=== PATIENT | female | born 1930 | race Caucasian/White ===

== ENCOUNTER 2018-03-31 20:20 | Emergency (ER) | payer OTHER ==
--- NOTE | 2018-03-31 20:57 | RAD REPORT ---
EXAM DESCRIPTION: CT - Head C Spine Mpr Wo Con - 03/31/2018 8:41 pm CLINICAL HISTORY: Head and neck injury status post fall. Head and neck pain COMPARISON: November 2017 TECHNIQUE: Computed axial tomography of the head and cervical spine was obtained. Sagittal and coronal reconstruction was performed. All CT scans are performed using dose optimization technique as appropriate and may include automated exposure control or mA/KV adjustment according to patient size. FINDINGS: An intracranial bleed is not seen. Moderate to marked low-density areas are present in per iventricular, deep and subcortical white matter bilaterally likely representing ischemic changes seco ndary to small vessel. Small low-density area within the left thalamus is unchanged likely indicating an old lacunar infarct ion. The ventricles are normal in caliber. An extra-axial fluid collection is not noted.Fluid within the visualized sinuses and mastoids is not seen A cervical fracture is not visualized. No dislocation is noted. Spondylosis involves the cervical spi ne resulting in mild central spinal stenosis IMPRESSION: No acute intracranial abnormality is seen. A cervical fracture is not visualized. If the patient continues to have symptoms to suggest intracra nial /spinal cord pathology then MRI would be recommended
--- NOTE | 2018-03-31 21:14 | RAD REPORT ---
EXAM DESCRIPTION: Vanesa Single View03/31/2018 9:08 pm CLINICAL HISTORY: Chest pain COMPARISON: November 2017 FINDINGS: The lungs appear clear of acute infiltrate. The heart is mildly to moderately enlarged IMPRESSION: No acute abnormalities displayed
--- NOTE | 2018-03-31 21:15 | RAD REPORT ---
EXAM DESCRIPTION: RAD - Pelvis - 03/31/2018 9:08 pm CLINICAL HISTORY: Pelvic pain status post injury FINDINGS: No fracture or dislocation is seen. The bones are considerably osteoporotic. If the patient continues have symptoms to suggest an occult fracture then MRI would be recommended
[2018-03-31 21:59] LABS: Absolute Lymphocytes (CBC) 1.9 K/uL (0.7-4.9); Absolute Monocytes 0.9 K/uL (0.1-1.3); Absolute Neutrophil 5.2 K/uL (1.8-8.0); Basophils % 0.6 % (0-1.3); Eosinophils % 1.7 % (0-4.4); Hematocrit 37.7 % (36.0-45.0); Lymphocytes % 22.9 % (15.3-44.8); MCH 31.3 pg (27.0-35.0); MCV 91.9 fL (80-100); MPV 10.2 fL (7.6-11.3); Monocytes % 11.2 % (3.3-12.3)
[2018-03-31 22:02] LABS: Protime INR 1.03
[2018-03-31 22:09] LABS: Urine Blood NEGATIVE (NEG); Urine Glucose NEGATIVE (NEG); Urine Protein TRACE (NEG)
[2018-03-31 22:18] LABS: Albumin 2.9 g/dL (3.4-5.0); Bilirubin Direct 0.2 mg/dL (0-0.2); Bilirubin Total 0.5 mg/dL (0.2-1.0); CKMB Creatine Kinase MB 2.1 ng/mL (0.3-3.6); Magnesium 2.3 mg/dL (1.8-2.4); Potassium 3.8 mmol/L (3.5-5.1); Protein, Total 5.8 g/dL (6.4-8.2)
[2018-03-31] MEDS ORDERED: NA CHLORIDE 0.9% 250 ML ONE (22:33)
[2018-03-31] MEDS ORDERED: ASPIRIN 600 MG/SUPP PR ONE (22:52)
[2018-03-31] MEDS ORDERED: METOPROLOL TARTRATE 5 MG/5 ML INJ IV ONE (22:58)
[2018-03-31] MEDS ORDERED: ENOXAPARIN 60 MG/0.6 ML SQ ONE (22:59)
--- NOTE | 2018-03-31 23:08 | ER ---
Nurse's Notes [facility] Name: Lb Padilla Age: 87 yrs Sex: Female : 1930 Arrival Date: 03/31/2018 Time: 20:27 Bed 2 Private MD: Diagnosis: Non-ST elevation (NSTEMI) myocardial infarction Presentation: 03/31 20:34 Presenting complaint: EMS states: Pt was found on floor at [facility], was initially tl2 combative. When pt was transferred to EMS stretcher she became obtunded. Arouses to verbal stimuli. Baseline AOx1. Pt denies complaints. Transition of care: patient was received from another setting of care (long-term care [facility]), [facility]. Onset of symptoms was March 31, 2018 at 19:30. Risk Assessment: Do you want to hurt yourself or someone else? Patient reports no desire to harm self or others. Initial Sepsis Screen: Does the patient meet any 2 criteria? No. Patient's initial sepsis screen is negative. Does the patient have a suspected source of infection? No. Patient's initial sepsis screen is negative. Care prior to arrival: IV initiated. 20 GA, in the right wrist. 20:34 Method Of Arrival: EMS: [facility] tl2 20:34 Acuity: ARABELLA 2 tl2 Triage Assessment: 20:42 General: Appears in no apparent distress. Behavior is listless. Pain: Denies pain. tl2 Neuro: Level of Consciousness is obtunded, Oriented to person, Aws Developer are equal bilaterally Facial symmetry appears normal, Pupils are pinpoint. Cardiovascular: Denies chest pain. Respiratory: Airway is patent Respiratory effort is even, unlabored, Respiratory pattern is regular, symmetrical. GI: No signs and/or symptoms were reported involving the gastrointestinal system. : No signs and/or symptoms were reported regarding the genitourinary system. Derm: Skin is pink, warm \T\ dry. Historical: - Allergies: 20:42 No Known Allergies; tl2 - Home Meds: 20:42 cyanocobalamin (vitamin B-12) Oral [Active]; bisoprolol fumarate 10 mg Oral tab 1 tab tl2 once daily [Active]; clonidine 0.1mg patch once every tuesday [Active]; docusate sodium 100 mg Oral tab 1 tab 2 times per day [Active]; duloxetine 60 mg oral cpDR 1 cap once daily [Active]; folic acid 1 mg Oral tab 1 tab once daily [Active]; ibuprofen 400 mg Oral tab 1 tab [Active]; levothyroxine 150 mcg tab 1 tab once daily [Active]; memantine 10 mg Oral tab 1 tab 2 times per day [Active]; olmesartan 40 mg once daily Oral [Active]; risperidone 3 mg Oral tab 1 tab once daily [Active]; spironolactone 50 mg Oral tab 1 tab once daily [Active]; - PMHx: 20:42 Alzheimers; Arthritis; Hypertension; Hypothyroidism; low back pain; manic; Psychotic tl2 disorder; rash; UTI; VASCULAR DEMENTIA; - Immunization history:: Adult Immunizations up to date. - Social history:: Smoking status: unknown. - Ebola Screening: : No symptoms or risks identified at this time. Screenin:44 Abuse screen: Denies threats or abuse. Nutritional screening: No deficits noted. tl2 Tuberculosis screening: No symptoms or risk factors identified. Fall Risk Fall in past 12 months (25 points). IV access (20 points). Gait- Weak (10 pts.). Assessment: 20:44 General: see triage assessment. tl2 21:48 Reassessment: Patient appears in no apparent distress at this time. No changes from tl2 previously documented assessment. 23:12 Reassessment: Patient appears in no apparent distress at this time. Lopressor held due tl2 to pulse at 52. 06/30 00:03 Reassessment: Pt is awake and trying to pull out IV, refused nitro and stated she tl2 wasn't going to take anything from me. Tech instructed to sit with pt. Notified PA that pt refused nitro, stated that she could have IV Lopressor if her pulse was high enough. IV Lopressor given, Pulse reading at 76. 00:30 Reassessment: Patient appears in no apparent distress at this time. Patient and/or tl2 family updated on plan of care and expected duration. Pain level reassessed. BP reading at 126/58, pt is sleeping, RR even and unlabored, VSS. Awaiting transport. Vital Signs: 03/31 20:42 BP 104 / 82; Pulse 69; Resp 20; Temp 97.8(O); Pulse Ox 97% on R/A; Weight 58.97 kg; tl2 Height 5 ft. 5 in. (165.10 cm); 21:48 BP 139 / 67; Pulse 52; Resp 10; Pulse Ox 96% on R/A; tl2 22:45 BP 170 / 89; Pulse 67; Resp 14; Temp 97.4(C); Pulse Ox 98% on R/A; tl2 04/01 00:19 BP 155 / 60; Pulse 57; Resp 11; Temp 97.8(C); Pulse Ox 96% on R/A; tl2 03/31 20:42 Body Mass Index 21.63 (58.97 kg, 165.10 cm) tl2 Vitals: 03/31 22:46 Cardiac Rhythm Assessment Regular Sinus rhythm. tl2 ED Course: 20:27 Patient arrived in ED. ds1 20:28 Chaim Neumann PA is PHCP. cp 20:28 Alex Edmond MD is Attending Physician. cp 20:[address] via stretcher. sj 20:36 Triage completed. tl2 20:41 CT Head C Spine In Process Unspecified. EDMS 20:41 CT completed. Patient tolerated procedure well. Patient moved back from CT. nj 20:42 Arm band placed on right wrist. tl2 20:44 Patient has correct armband on for positive identification. Placed in gown. Bed in low tl2 position. Call light in reach. Side rails up X2. 20:44 Maintain EMS IV. Dressing intact. Good blood return noted. Site clean \T\ dry. Gauge \T\ tl 2 site: 20 g R hand. 21:07 X-ray completed. Portable x-ray completed in exam room. Patient tolerated procedure bb2 well. 21:08 XRAY Chest (1 view) In Process Unspecified. EDMS 21:08 XRAY Pelvis In Process Unspecified. EDMS 21:23 Velazquez cath inserted, using sterile technique, 16 Fr., by ED staff, balloon inflated, tl2 urine specimen collected. returned clear yellow urine. 22:41 initiated transfer with [facility] spoke with Mari at the transfer line. She is eb calling cardiology and will call us back. 23:[address] Heck with BONNIE Neumann for patient consulation. eb 23:19 administrative approval given by Mari Houston RN change coordinator. Pt to go to [address] [place] [address] Bed 9. Number for report is [phone]. 04/01 00:17 Jyotsna Farris, JOSÉ MIGUEL is Primary Nurse. tl2 00:30 No provider procedures requiring assistance completed. Patient admitted, IV remains in tl2 place. Administered Medications: 03/31 22:43 Drug: NS 0.9% 250 ml Route: IV; Rate: bolus; Site: right hand; tl2 04/01 01:08 Follow up: IV Status: Completed infusion tl2 03/31 23:11 Drug: Lovenox 1 mg/kg Route: Sub-Q; Site: left lower abdomen; tl2 04/01 01:08 Follow up: Response: No adverse reaction tl2 03/31 23:12 Drug: Aspirin Suppository 300 mg Route: KS; tl2 04/01 01:08 Follow up: Response: No adverse reaction tl2 03/31 23:12 Not Given (Hemodynamic Parameters): Lopressor 5 mg IVP once; Hold for SBP <100 or HR tl2 <60. 04/01 00:09 Not Given (Patient Refused): Nitroglycerin 0.4 mg Sublingual once; every five minute if tl2 needed x3 00:18 Drug: Lopressor 5 mg Route: IVP; Site: right hand; tl2 01:09 Follow up: Response: No adverse reaction; Blood pressure is lowered tl2 Outcome: 03/31 23:08 ER care complete, transfer ordered by . belem 04/01 00:30 Transferred by ground EMS to [facility], Transfer form completed. tl2 Condition: stable Discharge instructions given to EMS. 01:09 Patient left the ED. tl2 Signatures: Dispatcher [employer] EDMO Trudy Briggs Demi ds1 Chaim Neumann PA PA cp Jyotsna Farris RN RN tl2 Umesh Nath Brittany bb2 Aga Melendrez Corrections: (The following items were deleted from the chart) 03/31 21:49 20:42 Neuro: Level of Consciousness is obtunded, Oriented to person, Aws Developer are equal tl2 bilaterally Facial symmetry appears normal, tl2 04/01 01:07 00:58 Reassessment: Patient appears in no apparent distress at this time. Patient tl2 and/or family updated on plan of care and expected duration. Pain level reassessed. tl2
--- NOTE | 2018-03-31 23:08 | EDPHYS ---
Physician Documentation [facility] Name: Lb Padilla Age: 87 yrs Sex: Female : 1930 Arrival Date: 03/31/2018 Time: 20:27 Bed 2 Private MD: ED Physician Alex Edmond HPI: 03/31 20:34 This 87 yrs old Female presents to ER via Unassigned with complaints of Fall cp Injury, Altered Mental Status. 20:34 Onset: The symptoms/episode began/occurred unknown. Found on ground by [facility] staff. Historical: - Allergies: 20:42 No Known Allergies; tl2 - Home Meds: 20:42 cyanocobalamin (vitamin B-12) Oral [Active]; bisoprolol fumarate 10 mg Oral tab 1 tab tl2 once daily [Active]; clonidine 0.1mg patch once every tuesday [Active]; docusate sodium 100 mg Oral tab 1 tab 2 times per day [Active]; duloxetine 60 mg oral cpDR 1 cap once daily [Active]; folic acid 1 mg Oral tab 1 tab once daily [Active]; ibuprofen 400 mg Oral tab 1 tab [Active]; levothyroxine 150 mcg tab 1 tab once daily [Active]; memantine 10 mg Oral tab 1 tab 2 times per day [Active]; olmesartan 40 mg once daily Oral [Active]; risperidone 3 mg Oral tab 1 tab once daily [Active]; spironolactone 50 mg Oral tab 1 tab once daily [Active]; - PMHx: 20:42 Alzheimers; Arthritis; Hypertension; Hypothyroidism; low back pain; manic; Psychotic tl2 disorder; rash; UTI; VASCULAR DEMENTIA; - Immunization history:: Adult Immunizations up to date. - Social history:: Smoking status: unknown. - Ebola Screening: : No symptoms or risks identified at this time. ROS: 20:36 Unable to obtain ROS due to altered mental status. cp Exam: 20:36 Head/Face: Normocephalic, atraumatic. cp 20:36 Constitutional: The patient appears non-diaphoretic, non-toxic, well developed, frail, smells of urine. 20:36 Eyes: Periorbital structures: appear normal, Pupils: pinpoint, bilaterally, Conjunctiva: normal, no exudate, no injection, Lids and lashes: appear normal, bilaterally. 20:36 ENT: External ear(s): are unremarkable, Ear canal(s): are normal, clear, Nose: is normal, Mouth: Lips: dry, Oral mucosa: dry, Posterior pharynx: Airway: no evidence of obstruction, patent. 20:36 Neck: C-spine: C-collar placed in ED. 20:36 Chest/axilla: Inspection: normal, Palpation: is normal, no crepitus, no tenderness. 20:36 Cardiovascular: Rate: normal, Rhythm: regular. 20:36 Respiratory: the patient does not display signs of respiratory distress, Respirations: normal, no use of accessory muscles, no retractions, no splinting, no tachypnea, Breath sounds: are clear throughout, no decreased breath sounds, no stridor, no wheezing. 20:36 Abdomen/GI: Inspection: abdomen appears normal, Bowel sounds: active, all quadrants, Palpation: abdomen is soft and non-tender, in all quadrants. 20:36 Neuro: Orientation: unable to test, altered, Mentation: responsive to pain, Cerebellar function: unable to test, Motor: unable to test. 20:40 ECG was reviewed by the Attending Physician. cp Vital Signs: 20:42 BP 104 / 82; Pulse 69; Resp 20; Temp 97.8(O); Pulse Ox 97% on R/A; Weight 58.97 kg; tl2 Height 5 ft. 5 in. (165.10 cm); 21:48 BP 139 / 67; Pulse 52; Resp 10; Pulse Ox 96% on R/A; tl2 22:45 BP 170 / 89; Pulse 67; Resp 14; Temp 97.4(C); Pulse Ox 98% on R/A; tl2 04/01 00:19 BP 155 / 60; Pulse 57; Resp 11; Temp 97.8(C); Pulse Ox 96% on R/A; tl2 03/31 20:42 Body Mass Index 21.63 (58.97 kg, 165.10 cm) tl2 MDM: 03/31 20:31 Patient medically screened. cp 23:00 Data reviewed: vital signs, nurses notes, lab test result(s), EKG, radiologic studies, cp CT scan, plain films. 23:00 Differential diagnosis: closed head injury, fracture, acute IN, CVA. Test cp interpretation: by ED physician or midlevel provider: ECG, plain radiologic studies. Response to treatment: the patient's symptoms have markedly improved after treatment. 03/31 20:30 Order name: Basic Metabolic Panel 03/31 20:30 Order name: CBC with Diff 03/31 20:30 Order name: Ckmb 03/31 20:30 Order name: CPK 03/31 20:30 Order name: LFT's 03/31 20:30 Order name: Magnesium 03/31 20:30 Order name: NT PRO-BNP 03/31 20:30 Order name: PT-INR 03/31 20:30 Order name: Ptt, Activated; Complete Time: 22:22 03/31 20:30 Order name: Troponin (emerg Dept Use Only); Complete Time: 22:22 03/31 22:22 Interpretation: Abnormal: TROPED 0.15. 03/31 20:30 Order name: Lactate; Complete Time: 22:50 03/31 20:30 Order name: Procalcitonin; Complete Time: 22:50 03/31 22:51 Interpretation: Procalcitonin < 0.05; Reviewed. 03/31 20:30 Order name: Blood Culture Adult (2) 03/31 20:30 Order name: Basic Metabolic Panel; Complete Time: 22:22 EDIN 03/31 22:22 Interpretation: Normal except: CL 108; GLUC 110; BUN 25; GFR 52. 03/31 20:30 Order name: CT Head C Spine; Complete Time: 21:17 03/31 21:17 Interpretation: Reviewed report. 03/31 20:30 Order name: XRAY Chest (1 view); Complete Time: 21:17 03/31 20:30 Order name: XRAY Pelvis; Complete Time: 21:17 03/31 20:30 Order name: CBC with Automated Diff; Complete Time: 22:22 EDIN 03/31 22:23 Interpretation: Normal except: PLT 109. 03/31 20:30 Order name: CKMB Creatine Kinase MB; Complete Time: 22:22 EDIN 03/31 20:30 Order name: Creatine Phosphokinase; Complete Time: 22:22 EDIN 03/31 20:30 Order name: Liver (Hepatic) Function; Complete Time: 22:22 EDIN 03/31 20:30 Order name: Magnesium; Complete Time: 22:22 EDMS 03/31 20:30 Order name: NT PRO-BNP; Complete Time: 22:22 EDMS 03/31 20:30 Order name: Protime (+INR); Complete Time: 22:22 EDMS 03/31 21:53 Order name: Urine Dipstick--Ancillary (enter results); Complete Time: 22:22 eb 03/31 20:30 Order name: EKG; Complete Time: 20:31 cp 03/31 20:30 Order name: Cardiac monitoring; Complete Time: 21:38 cp 03/31 20:30 Order name: EKG - Nurse/Tech; Complete Time: 21:38 cp 03/31 20:30 Order name: IV Saline Lock; Complete Time: :44 cp 03/31 20:30 Order name: Labs collected and sent; Complete Time: :44 cp 03/31 20:30 Order name: O2 Per Protocol; Complete Time: 21:44 cp 03/31 20:30 Order name: O2 Sat Monitoring; Complete Time: :44 cp 03/31 20:30 Order name: Urine Dipstick-Ancillary (obtain specimen); Complete Time: :44 cp 03/31 21:43 Order name: Velazquez; Complete Time: 21:43 cp EC:40 Rate is 66 beats/min. Rhythm is regular. KS interval is normal. QRS interval is normal. cp QT interval is prolonged at 464 msec. Interpreted by me. Reviewed by me. Administered Medications: 22:43 Drug: NS 0.9% 250 ml Route: IV; Rate: bolus; Site: right hand; tl2 04/01 01:08 Follow up: IV Status: Completed infusion 03/31 23:11 Drug: Lovenox 1 mg/kg Route: Sub-Q; Site: left lower abdomen; tl2 04/01 01:08 Follow up: Response: No adverse reaction tl2 03/31 23:12 Drug: Aspirin Suppository 300 mg Route: KS; tl2 04/01 01:08 Follow up: Response: No adverse reaction 03/31 23:12 Not Given (Hemodynamic Parameters): Lopressor 5 mg IVP once; Hold for SBP <100 or HR tl2 <60. 04/01 00:09 Not Given (Patient Refused): Nitroglycerin 0.4 mg Sublingual once; every five minute if tl2 needed x3 00:18 Drug: Lopressor 5 mg Route: IVP; Site: right hand; tl2 01:09 Follow up: Response: No adverse reaction; Blood pressure is lowered tl2 Disposition: 03/31 23:15 Chart complete. cp 04/01 11:13 Co-signature as Attending Physician, Alex Edmond MD I agree with the assessment and wa plan of care. Disposition: 03/31/18 23:08 Transfer ordered to [facility]. Diagnosis is Non-ST elevation (NSTEMI) myocardial infarction. - Reason for transfer: Higher level of care. - Accepting physician is Marsha. - Condition is Stable. - Problem is new. - Symptoms have improved. Signatures: Dispatcher [employer] EDMS Chaim Neumann PA PA cp Knox, Taylor, RN RN tl2 Alex Edmond MD MD wa Corrections: (The following items were deleted from the chart) 01:09 03/31 23:08 03/31/2018 23:08 Transfer ordered to [facility]. tl2 Diagnosis is Non-ST elevation (NSTEMI) myocardial infarction. Reason for transfer: Higher level of care. Accepting physician is Marsha. Condition is Stable. Problem is new. Symptoms have improved. cp
[2018-04-01] MEDS ORDERED: NITROGLYCERIN 0.4 MG/TAB SL ONE (00:07)
--- NOTE | 2018-04-01 08:42 | EKG ---
Test Date: 2018-03-31 Test Time: 20:31:05 Network Security Analyst: CLAIRE MEASUREMENT RESULTS: Intervals: Rate: 66 WV: 140 QRSD: 100 QT: 464 QTc: 486 [place]: P: 87 WV: 140 QRS: 66 T: -22 INTERPRETIVE STATEMENTS: Normal sinus rhythm Possible Left atrial enlargement ST & T wave abnormality, consider inferior ischemia Prolonged QT Abnormal ECG Compared to ECG 11/14/2017 06:52:25 Possible ischemia now present Left ventricular hypertrophy no longer present ST (T wave) deviation still present Electronically Signed On 04-01-18 08:41:27 CDT by Deshawn Strong
== END 2018-04-01 01:09 | disposition short-term general hospital (02) ==
LOC: ER 20:20
DX: I21.4 Non-ST elevation (NSTEMI) myocardial infarction (principal); I10 Essential (primary) hypertension; E03.9 Hypothyroidism, unspecified; G30.9 Alzheimer's disease, unspecified; F02.80 Dementia in other diseases classified elsewhere, unspecified severity, without behavioral disturbance, psychotic disturbance, mood disturbance, and anxiety
CPT/HCPCS: 36415; 51702; 70450; 71045; 72125; 72170; 80048; 80076; 81003; 82550; 82553; 83605; 83735; 83880; 84145; 84484; 85025; 85610; 85730; 87040 ×2; 93005; 96365; 96366; 96372; 96375; 99285; J1650; 96361; 96374